=== PATIENT | male | born 1960 | race Caucasian/White ===

== ENCOUNTER → 2017-11-17 | Outpatient (CLI) | payer OTHER ==
[~2017-11-17] MED LIST: ASCO100029 PO; DILA2TAB4 PO; HYDR-3516 PO; VITA100018 PO; VITACAP7 PO
[2017-11-17 10:06] LABS: HEMATOCRIT 37.7 % (39.0-51.0); HEMOGLOBIN 12.7 GM/DL (13.0-17.0); MEAN CELL VOLUME 93.2 FL (80.0-100.0); MEAN CORPUSCULAR HEMOGLOBIN 31.5 PG (27.0-34.0); MEAN CORPUSCULAR HGB CONC 33.8 % (32.0-36.0); MEAN PLATELET VOLUME 7.4 FL (7.0-11.0); PLATELET COUNT 305 TH/MM3 (150-450); RED BLOOD COUNT 4.04 MIL/MM3 (4.50-5.90); RED CELL DISTRIBUTION WIDTH 12.6 % (11.6-17.2); WHITE BLOOD COUNT 4.4 TH/MM3 (4.0-11.0)
[2017-11-17 10:13] LABS: BACTERIA, URINE RARE /hpf; BILIRUBIN, URINE NEG (NEG); BLOOD, URINE SMALL (NEG); GLUCOSE,URINE NEG (NEG); KETONE, URINE NEG (NEG); MUCUS URINE FEW /lpf (OCC); NITRITE,URINE NEG (NEG); PH, URINE 5.5 (5.0-8.5); SQUAMOUS EPITHELIAL CELL URINE <1 /hpf (0-5); URINE COLOR YELLOW (YELLW/STRAW); URINE LEUKOCYTE ESTERASE NEG (NEG)
[2017-11-17 10:17] LABS: PROTHROMBIN TIME - PATIENT 10.2 SEC (9.8-11.6)
[2017-11-17 10:39] LABS: BICARBONATE 30.9 MEQ/L (21.0-32.0); CALCIUM 8.7 MG/DL (8.5-10.1); CREATININE 1.29 MG/DL (0.60-1.30)
--- NOTE | 2017-11-17 13:47 | EKG ---
Date Performed: 11/17/2017 Time Performed: 09:21:56 PTAGE: 57 years EKG: Sinus rhythm MARKED LEFT AXIS DEVIATION ABNORMAL ECG PREVIOUS TRACING 05/27/16 Since the previous tracing, no significant change noted DOCTOR: Ramos Walters Interpretating Date/Time 11/17/2017 13:44:35
== END ==
LOC: CPRE 09:00
PROVIDERS: ATTEND Orthopaedic Surgery
DX: Z01.810 Encounter for preprocedural cardiovascular examination (principal); Z01.812 Encounter for preprocedural laboratory examination; M16.12 Unilateral primary osteoarthritis, left hip; M79.609 Pain in unspecified limb; R94.31 Abnormal electrocardiogram [ECG] [EKG]
CPT/HCPCS: 36415; 80048; 81001; 85027; 85610; 85730; 93005

== ENCOUNTER 2017-12-05 05:20 | Inpatient (IN) | payer OTHER ==
[~2017-12-05] VITALS: Ht 177.8 cm; Wt 73.2 kg
[~2017-12-05 05:20] MED LIST changes: -DILA2TAB4 PO
[2017-12-05] MEDS ORDERED: CHLORHEXIDINE GLUCONATE 4% SOLN 120 ML BTL TOPICAL SCH (05:45)
[2017-12-05] MEDS ORDERED: POVIDONE IODINE 5% (ANTISEPSIS KIT) 4 APPLICATIONS EACH NARE PRN (05:45)
[2017-12-05] MEDS ORDERED: METOPROLOL TARTRATE 25 MG TAB PO PRN (05:45)
[2017-12-05] MEDS ORDERED: LACTATED RINGER'S 1000 ML IV PRN (05:45)
[2017-12-05] MEDS ORDERED: CHLORHEXIDINE GLUCONATE 2 % 1 PACK (2 CLOTHS) TOPICAL PRN (05:45)
[2017-12-05] MEDS ORDERED: SODIUM CHLORID 0.9% 500 ML IV PRN (05:45)
[2017-12-05] MEDS ORDERED: ceFAZolin 2 GM PREMIX 50 ML IV SCH (05:45)
[2017-12-05] MEDS ORDERED: GENTAMICIN SULFATE 80 MG/2 ML VIAL ONE (06:02)
[2017-12-05] MEDS ORDERED: ACETAMINOPHEN/HYDROcodone 325 MG/7.5 MG TAB PO PRN (06:45)
[2017-12-05] MEDS ORDERED: ZOLPIDEM TARTRATE 5 MG TAB PO PRN (06:45)
[2017-12-05] MEDS ORDERED: MORPHINE SULFATE 8 MG/ML INJ IV PUSH PRN (06:45)
[2017-12-05] MEDS ORDERED: MAGNESIUM HYDROXIDE SUSP 30 ML CUP PO PRN (06:45)
[2017-12-05] MEDS ORDERED: Post-op Orders (for Pharmacy) XX ONE (06:45)
[2017-12-05] MEDS ORDERED: BISACODYL 10 MG SUPP RECTAL PRN (06:45)
[2017-12-05] MEDS ORDERED: ONDANSETRON HCL 4 MG/2 ML VIAL IVP PRN (06:45)
[2017-12-05] MEDS ORDERED: SODIUM CHLORIDE 0.9% IV SCH ×3 (07:00→10:00)
[2017-12-05] MEDS ORDERED: TRANEXAMIC ACID IV SCH ×3 (07:00→10:00)
[2017-12-05] MEDS: KETOROLAC TROMETHAMINE 30 MG/ML (IVP) VIAL IVP SCH ×3 (07:00→18:08)
[2017-12-05] MEDS ORDERED: EXPAREL PERI-ARTICULAR INJECTION (TOTAL VOL. 60 ML) P-ARTICULR SCH ×2 (07:00)
[2017-12-05] MEDS: ASPIRIN EC 81 MG TABEC PO SCH ×2 (09:00→21:05)
[2017-12-05] MEDS: CHOLECALCIFEROL (VIT D3) 1000 UNIT TAB PO SCH (09:00)
[2017-12-05] MEDS: ASCORBIC ACID 500 MG TAB PO SCH (09:00)
[2017-12-05] MEDS: VITAMIN B COMPLEX/VIT C TAB PO SCH (09:00)
--- NOTE | 2017-12-05 09:20 | PD.OP ---
Operative Report Date of Surgery: December 05, 2017 Preoperative Diagnosis: (1) Primary osteoarthritis of left hip Postoperative Diagnosis: (1) Primary osteoarthritis of left hip Procedure: Left total hip arthroplasty using [place] prosthesis. Anesthesia: General endotracheal with supplemental local with Exparel Surgeon: Rodger Burgos MD Architectural Drafter(s): RAFAEL Davidson Operation and Findings: Indications and Findings: This 57-year-old man has had progressive worsening of pain in his left hip over the past 8 months. His ambulation tolerance is gone down to a few blocks and perhaps up to a mile but with significant pain. He has difficulty with activities of daily living. He has tried anti-inflammatory agents, analgesics, activity modification, exercises and ambulatory aids with no benefit. Physical findings showed a significant antalgic gait with tenderness on motion in the left hip. Radiographic findings shows severe osteoarthritis with loss of articular cartilage down to expose subchondral bone and D formation of the femoral head. Operative findings: There is severe osteoarthritis in the right hip with loss of articular cartilage down to expose subchondral bone in the femur and the acetabulum. Implants: The acetabular component was a 54 mm Tritanium cluster shell with a X3 polyethylene, 36 mm inner diameter, 0 liner. The femoral component was an Accolade 2, size 7 x 132. The femoral head was 36 mm outer diameter, -5 mm neck length, Biolox delta. The patient was brought to the clean air operating suite and a general endotracheal anesthetic was administered. The patient was then positioned into a lateral position with the operative hip up on a [employer] lateral positioner. The hip and lower extremity were then prepped with alcohol, Hibiclens and ChloraPrep and draped in the usual manner with the hip draped free. Patient received prophylactic antibiotics preoperatively. The patient also received tranexamic acid preoperatively. An appropriate timeout procedure was carried out. An incision was then made from the midportion of the greater trochanter proximally and posteriorly paralleling the fibers of the gluteus leonidas. The incision was deepened through subcutaneous tissues down to the fascia lluvia and gluteus fascia. The gluteus fascia was then split longitudinally in line with its fibers up to the upper portion of the fascia lluvia. With wound towels in place, the Charnley retractor was inserted. The sciatic nerve was identified and protected throughout the procedure. Dissection was then carried down to the interval between the gluteus minimus and the piriformis. A retractor was inserted. The piriformis and obturator conjoined tendon was released from the greater trochanter and reflected off the capsule. A capsulotomy was made longitudinally along the femoral neck to the base of the femoral neck and then curved distally along the posterior aspect of the greater trochanter. The hip was then internally rotated. Further release of the external rotators was carried out exposing the hip. The hip was then dislocated. The femoral neck was transected at the appropriate level using the oscillating saw placement of appropriate retractors. The femoral head was then removed. Preparation of the femur was initiated with a box osteotome followed by a curet to identify the medullary canal. Broaching was then initiated with the size 0 broach and went and 1 size increments up to size 7. The broach handle was removed. The femoral neck was then trimmed with a calcar planar. Attention was then directed to the acetabulum. Soft tissues were debrided from the acetabulum. Retractors were placed about the acetabulum. Reaming was then initiated with the 47 millimeter reamer and went in 1-2 mm increments up to the 54 millimeter diameter reamer. A trial reduction with the 54 millimeter trial prosthesis was carried out. When this was deemed to be appropriate, the trial prosthesis was removed. The acetabulum was then irrigated and cleaned. The actual prosthesis as noted above was then impacted into place and seated appropriately. Drill holes were then made and sounded. Appropriate sized screws (2) were then inserted to stabilize the acetabulum further. The liner as noted above was then inserted into the acetabular shell and impacted into place. Osteophytes were trimmed from the acetabulum. Local anesthetic was then administered throughout the area of the acetabulum and anterior aspect of the femur. The trial neck was then placed on the broach for the above-noted prosthesis. The femoral head trial was placed onto the femoral neck . A trial reduction was then carried out. Adjustment was made as needed. The stability, leg length and motion were excellent. There was no pistoning. The trial prosthesis was removed. The broach was removed. The femoral component was then impacted into the medullary canal of the femur after irrigation and suctioning. When this was appropriately seated a trial reduction was again carried out with the trial prosthesis. Again, there was no pistoning. The leg length was appropriate. The stability and motion were excellent. The trial prosthesis was then removed. After cleaning and drying the trunion of the femoral component, the above-noted femoral head was impacted onto the trunnion. The hip was then reduced. The stability and mobility were again checked along with leg lengths as noted above. The hip was then positioned appropriately and closure commenced after the remainder of the local anesthetic was injected throughout the hip. The external rotators and capsule were then repaired with #1 Vicryl interrupted transosseous sutures with a Krakw technique to reattach the external rotators and capsule to the posterior aspect of the greater trochanter. The capsule itself on the superior aspect was closed with #1 Vicryl interrupted [id number] sutures. The sciatic nerve was again inspected. The fascia lluvia and gluteus fascia were then repaired with #1 Vicryl interrupted [id number] sutures. The subcutaneous tissues were closed with 2-0 Vicryl interrupted simple sutures with buried knots. The skin was closed with a continuous subcuticular closure of 4-0 Monocryl. The wound was then approximated with Dermabond Prineo. A silver impregnated dressing was applied to the hip. A knee immobilizer was applied to the leg. The patient was then transferred from the operating room to the recovery room in satisfactory condition having tolerated the procedure well. Counts are correct. Specimens: None. Estimated blood loss: 350 mL Munir Burgos MD ([facility]) December 05, 2017 09:20
[2017-12-05] MEDS ORDERED: HYDR-3580 PO (09:23)
[2017-12-05] MEDS ORDERED: ECASA81 PO (09:23)
--- NOTE | 2017-12-05 09:24 | HHI.FF ---
Face to Face Verification Diagnosis: (1) Status post total replacement of left hip Physical Therapy Gait training Hip: Total hip, Protocol: Left, Posterior hip precautions, Progress to weight bearing Canvas Knee Splint: When in bed & 2 pillows btw thighs Left LE Weight Bearing: WB as tolerated Left LE Range of Motion: Active ROM Nursing Nursing: Dressing changes Dressing Changes: Daily dressing change, Coverderm/Primapore Additional Instructions Do not remove Dermabond Prineo. I have seen patient Niraj Calixto on 12/05/17. My clinical findings support the need for the requested home health care services because: Ltd mobility - disease progression Limited ability to care for self High risk of falls I certify that my clinical findings support that this patient is homebound because: Post-op weakness Unsteady gait/balance Unsafe to leave home unassisted Munir Burgos MD ([facility]) December 05, 2017 09:24
[2017-12-05] MEDS ORDERED: MIDAZOLAM HCL 2 MG/2 ML VIAL ONE (09:33)
[2017-12-05] MEDS ORDERED: ACETAMINOPHEN 1000 MG/100 ML 0 ML IV ONE (09:33)
[2017-12-05] MEDS ORDERED: *MEPERIDINE 25 MG INJ VIAL PERIprocedural Use ONLY ONE (09:42)
[2017-12-05] MEDS ORDERED: DO NOT ADM ANY ANTICOAGULANT DRUGS PRN (09:45)
[2017-12-05] MEDS ORDERED: *morphine SULFATE 8 MG/ML PERIprocedure ONLY ONE ×2 (09:51→10:25)
[2017-12-05] MEDS: LACTATED RINGER'S 1000 ML INJ 1,000 ML IV SCH ×2 (10:00→21:06)
--- NOTE | 2017-12-05 10:35 | RADRPT ---
EXAM DATE/TIME: 12/05/2017 09:43 [place] COMPARISON: No previous studies available for comparison. INDICATIONS : Post op left total hip MEDICAL HISTORY : None. SURGICAL HISTORY : Total left hip ENCOUNTER: Initial ACUITY: 1 day PAIN SCORE: 10/10 LOCATION: Left hip FINDINGS: Left total hip arthroplasty is noted. No fracture or dislocation. Bone density is normal. Subcutaneou s air and probable joint fluid density suspected. CONCLUSION: Postoperative changes to the left hip are noted. Jefferson Skinner MD on December 05, 2017 at 10:31 Board Certified Radiologist. This report was verified electronically.
[2017-12-05] MEDS ORDERED: ROCURONIUM INJ 50 MG/5 ML SYRINGE IV PUSH ONE (12:00)
[2017-12-05] MEDS ORDERED: GLYCOPYRROLATE 1 MG/5 ML SYRINGE IV PUSH ONE (12:00)
[2017-12-05] MEDS ORDERED: PROPOFOL 200 MG/20 ML AMP IV ONE (12:00)
[2017-12-05] MEDS ORDERED: PHENYLEPH/NS 1000 MCG/10 ML SYR IV ONE (12:00)
[2017-12-05] MEDS ORDERED: NEOSTIGMINE 5 MG/5 ML SYRINGE IV PUSH ONE (12:00)
[2017-12-05] MEDS ORDERED: ONDANSETRON HCL 4 MG/2 ML VIAL IV ONE (12:00)
[2017-12-05] MEDS ORDERED: KETOROLAC TROMETHAMINE 30 MG/ML (IVP) VIAL IV PUSH ONE (12:00)
[2017-12-05] MEDS ORDERED: DEXAMETHASONE SOD PHOS 4 MG/ML VIAL IV ONE (12:00)
[2017-12-05] MEDS ORDERED: LACTATED RINGER'S 1000 ML INJ 1,000 ML IV ONE (12:00)
[2017-12-05] MEDS ORDERED: LIDOCAINE HCL 1% PF 5 ML SYRINGE OTHER ONE (12:00)
[2017-12-05] MEDS ORDERED: ePHEDrine/NS 25 MG/5 ML SYRINGE IV ONE (12:00)
[2017-12-05] MEDS ORDERED: ESMOLOL HCL 100 MG/10 ML VIAL IV ONE (12:00)
--- NOTE | 2017-12-05 14:00 | PD.CONS ---
HPI Service [facility] Hospitalists Consult Requested By Dr. Burgos Reason for Consult Medical management Primary Care Physician Non-Staff Diagnoses: (1) Primary osteoarthritis of left hip (2) Bilateral kidney stones History of Present Illness The patient is a 57-year-old male who is seen following left total hip arthroplasty. Hospitalist consultation was requested for medical management. Patient reports that his pain is well controlled. Denies chest pain or dyspnea. No nausea, vomiting, diarrhea, constipation. He reports chronic frequent kidney stones. No active symptoms. He sees Dr. Acevedo for urology. Review of Systems Constitutional: DENIES: Fever, Chills, Night Sweats Eyes: DENIES: Blurred vision, Vision loss Ears, nose, mouth, throat: DENIES: Hearing loss Respiratory: DENIES: Cough, Wheezing, Sputum production, Shortness of breath Cardiovascular: DENIES: Chest pain, Palpitations, Dyspnea on Exertion, Lower Extremity Edema Gastrointestinal: DENIES: Abdominal pain, Constipation, Diarrhea, Nausea, Vomiting Genitourinary: DENIES: Urinary frequency, Urinary incontinence, Urgency, Hematuria, Dysuria, Nocturia Musculoskeletal: COMPLAINS OF: Joint pain, DENIES: Muscle aches Integumentary: DENIES: Pruritus, Rash Hematologic/lymphatic: DENIES: Bruising Neurologic: DENIES: Headache Past Family Social History Allergies: Coded Allergies: No Known Allergies (Verified Allergy, Unknown, 12/05/17) Past Medical History Nephrolithiasis Reported Medications [place] as needed Vitamin D3 Vitamin C B complex vitamins Family History Cancer Osteoarthritis Social History Denies alcohol or tobacco use. Rare marijuana use (once/year). Physical Exam Vital Signs Vital Signs Date Time Temp Pulse Resp B/P (MAP) Pulse Ox O2 Delivery O2 Flow Rate FiO2 12/05/17 13:20 98 16 96 Room Air 12/05/17 13:00 98.4 100 16 119/64 (82) 96 Room Air 12/05/17 12:00 95 16 120/61 (80) 95 Room Air 12/05/17 11:00 15 12/05/17 11:00 88 16 126/59 (81) 94 Room Air 12/05/17 10:45 82 16 130/61 (84) 94 Room Air 12/05/17 10:42 15 12/05/17 10:42 15 12/05/17 10:30 97.7 87 16 133/68 (89) 100 Nasal Cannula 2 12/05/17 10:15 86 15 133/62 (85) 99 Nasal Cannula 2 12/05/17 10:00 84 15 137/66 (89) 99 Nasal Cannula 2 12/05/17 09:56 15 12/05/17 09:45 97.2 89 15 140/68 (92) 98 Nasal Cannula 2 12/05/17 09:30 92 14 146/69 (94) 98 Nasal Cannula 2 12/05/17 09:23 96.4 12/05/17 09:23 96.4 99 14 141/76 (97) 100 Nasal Cannula 3 12/05/17 05:56 97.7 65 18 127/78 (94) 98 Physical Exam GENERAL: Well-nourished, well-developed male in no acute distress. HEENT: Normocephalic, atraumatic. Pupils equal, round and reactive. Extraocular movements intact. No scleral icterus. No injection or drainage. Oropharynx is clear. Mucous membranes are moist. CARDIOVASCULAR: Regular rate and rhythm without murmurs, gallops, or rubs. RESPIRATORY: Clear to auscultation. No wheezes, rales, or rhonchi. Breathing is non-labored. GASTROINTESTINAL: Abdomen soft, non-tender, nondistended. EXTREMITIES: No lower extremity edema. SCDs. PSYCH: Alert and oriented x 3. Imaging Last Impressions Hip X-Ray 12/05/17 0640 Signed Impressions: Service Date/Time: Tuesday, December 05, 2017 09:43 - CONCLUSION: Postoperative changes to the left hip are noted. Jefferson Skinner MD Assessment and Plan Assessment and Plan 1. Osteoarthritis: Status post left total hip arthroplasty. Management per orthopedic surgery. Continue pain control, bowel regimen, physical therapy. 2. Nephrolithiasis: Patient has chronic kidney stones. Currently asymptomatic. Follow-up as outpatient with urology. 3. The patient states that following right total hip arthroplasty a couple years ago, he developed hypotension and was kept in the hospital an extra day. We will monitor his blood pressure. 4. DVT prophylaxis: Aspirin. Jewel Chiang MD December 05, 2017 14:00
[2017-12-05 16:00] VITALS: BP 112/61; PULSE 90; RESP 18; TEMP 97.9; O2SAT 95
[2017-12-05 20:14] VITALS: BP 102/65; PULSE 71; RESP 18; TEMP 97.8; O2SAT 95
[2017-12-05] MEDS: ACETAMINOPHEN/HYDROcodone 325 MG/7.5 MG TAB PO PRN (21:04)
[2017-12-05 23:19] VITALS: BP 97/52; PULSE 79; RESP 18; TEMP 98.1; O2SAT 98
[2017-12-06] MEDS: KETOROLAC TROMETHAMINE 30 MG/ML (IVP) VIAL IVP SCH ×5 (01:29→23:54)
[2017-12-06 03:11] VITALS: BP 105/53; PULSE 88; RESP 18; TEMP 98.1; O2SAT 96
[2017-12-06 06:20] LABS: HEMATOCRIT 27.7 % (39.0-51.0); HEMOGLOBIN 9.6 GM/DL (13.0-17.0)
--- NOTE | 2017-12-06 06:55 | PD.ORT.PN ---
Subjective Post Op Day #: 1 Subjective Remarks He is doing well. He has minimal complaints related to his hip. He did have some problems with hypotension postoperatively initially but is doing well now. He has virtually no pain. Distance Walked 60 feet with PT. Objective Vitals Vital Signs Date Time Temp Pulse Resp B/P (MAP) Pulse Ox O2 Delivery O2 Flow Rate FiO2 12/06/17 03:11 98.1 88 18 105/53 (70) 96 12/06/17 02:28 17 12/05/17 23:19 98.1 79 18 97/52 (67) 98 12/05/17 22:25 18 12/05/17 21:44 Room Air 12/05/17 20:14 97.8 71 18 102/65 (77) 95 12/05/17 16:00 97.9 90 18 112/61 (78) 95 12/05/17 13:20 98 16 96 Room Air 12/05/17 13:00 98.4 100 16 119/64 (82) 96 Room Air 12/05/17 12:00 95 16 120/61 (80) 95 Room Air 12/05/17 11:00 15 12/05/17 11:00 88 16 126/59 (81) 94 Room Air 12/05/17 10:45 82 16 130/61 (84) 94 Room Air 12/05/17 10:42 15 12/05/17 10:42 15 12/05/17 10:30 97.7 87 16 133/68 (89) 100 Nasal Cannula 2 12/05/17 10:15 86 15 133/62 (85) 99 Nasal Cannula 2 12/05/17 10:00 84 15 137/66 (89) 99 Nasal Cannula 2 12/05/17 09:56 15 12/05/17 09:45 97.2 89 15 140/68 (92) 98 Nasal Cannula 2 12/05/17 09:30 92 14 146/69 (94) 98 Nasal Cannula 2 12/05/17 09:23 96.4 12/05/17 09:23 96.4 99 14 141/76 (97) 100 Nasal Cannula 3 I/O 12/05/17 12/05/17 12/05/17 12/06/17 12/06/17 12/06/17 07:00 15:00 23:00 07:00 15:00 23:00 Intake Total 1740 ml 1480 ml 460 ml Output Total 350 ml 200 ml 1225 ml Balance 1390 ml 1280 ml -765 ml Intake Oral 240 ml 480 ml 360 ml IV Total 1000 ml 100 ml Other 1500 ml Output Urine Total 200 ml 1225 ml Estimated Blood Loss 350 ml # Voids 0 # Bowel Movements 0 Result Diagram: 12/06/17 0543 Imaging Last 72 hours Impressions Hip X-Ray 12/05/17 0640 Signed Impressions: Service Date/Time: Tuesday, December 05, 2017 09:43 - CONCLUSION: Postoperative changes to the left hip are noted. Jefferson Skinner MD Objective Remarks He is resting comfortably, supine in bed. The neurovascular status is intact. The dressing is dry and intact. Assessment & Plan Ortho Post Op Day #: 1 Problem List: (1) Primary osteoarthritis of left hip ICD Codes: M16.12 - Unilateral primary osteoarthritis, left hip Status: Resolved (2) Status post total hip replacement, right ICD Codes: Z96.641 - Presence of right artificial hip joint Status: Acute Plan: Continue postop care and PT. Assessment and Plan Condition: Good. Orthopedically stable. DVT prophylaxis: TEDs, aspirin, sequentials. Discharge plans: Home with home health care. An appointment was scheduled through the office. Prescriptions: [place] 7.5/325 Munir Burgos MD ([place]) December 06, 2017 06:54
--- NOTE | 2017-12-06 07:11 | HHI.DS ---
Discharge Summary Admission Date December 05, 2017 at 05:20 Discharge Date: December 07, 2017 Admitting Diagnosis Primary osteoarthritis, left hip. Diagnosis: (1) Primary osteoarthritis of left hip Diagnosis: Principal ICD Codes: M16.12 - Unilateral primary osteoarthritis, left hip Status: Resolved (2) Status post total hip replacement, right Diagnosis: Principal ICD Codes: Z96.641 - Presence of right artificial hip joint Status: Acute Procedures Left total hip arthroplasty using [place] prosthesis on 12/05/2017. Brief History This is a 57 year old male patient has had recent onset of left hip pain over the past 8 months progressively worsening to the point that he has had very limited ambulation tolerance. This has not responded to conservative measures including anti-inflammatory agents, activity modification, analgesics and external support. Physical findings showed limitation of range of motion of the hip with tenderness on range of motion. He had an antalgic gait. Radiographic findings showed loss of articular cartilage to expose subchondral bone on both x-ray and MRI. CBC/BMP: 12/06/17 0543 Significant Findings Laboratory Tests Test 12/06/17 05:43 12/07/17 04:01 Hemoglobin 9.6 GM/DL (13.0-17.0) 9.5 GM/DL (13.0-17.0) Hematocrit 27.7 % (39.0-51.0) 27.9 % (39.0-51.0) Laboratory Tests Test 12/06/17 05:43 Hemoglobin 9.6 GM/DL (13.0-17.0) Hematocrit 27.7 % (39.0-51.0) Imaging Last 72 hours Impressions Hip X-Ray 12/05/17 0640 Signed Impressions: Service Date/Time: Tuesday, December 05, 2017 09:43 - CONCLUSION: Postoperative changes to the left hip are noted. Jefferson Skinner MD PE at Discharge He is resting comfortably, supine in bed. The neurovascular status is intact. The dressing is dry and intact. Hospital Course The patient was admitted as noted above. The above noted operative procedure was carried out that day. Preoperatively prophylactic antibiotics were administered Ancef according to protocol. These were continued postoperatively. The patient also received tranexamic acid to help with hemostasis according to protocol. In the postanesthesia care unit mechanical methods of DVT prophylaxis in the form of HUMBLE stockings and sequentials were initiated. Physical therapy was initiated on the day of surgery. On postoperative day #1 physical therapy continued. DVT prophylaxis with aspirin 81 mg was initiated at this time. He did have some hypotension when walking. This did improve. The patient continued physical therapy throughout the hospitalization. The distance walked and range of motion improved throughout the hospitalization. The patient was discharged on postoperative day 2 with the disposition being to home with home health care. An appointment for follow-up was made prior to admission. Pt Condition on Discharge: Good Discharge Disposition: Disch w/ Home Health Serv Discharge Instructions Diet Instructions: As Tolerated, No Restrictions Activities You Can Perform: Full Weight Bearing, Shower Only-No Bath Activities to Avoid: Lifting/Bending, Strenuous Activity, Bathing, Driving Follow up Referrals: Orthopedics with Munir Burgos MD ([place]) New Medications: Aspirin DR (Aspirin DR) 81 Mg Tabdr 81 MG PO BID for Prevent Blood Clot for 30 Days, #60 TAB Hydrocodone/Acetaminophen (Hydrocodone-Acetamin 7.5-325) 7.5 Mg-325 Mg Tablet 1 TAB PO Q4H PRN for PAIN SCALE 1 TO 10, #30 TAB Continued Medications: Ascorbic Acid (Vitamin C) 1,000 Mg Tablet.er 1 CAP PO DAILY B-Complex Vitamins (B Complex) 1 Cap 1 CAP PO DAILY for Nutritional Supplement, #30 CAP 0 Refills Cholecalciferol (Vitamin D3) 1,000 Unit Tab 1000 UNITS PO DAILY for Nutritional Supplement, #1 BOTTLE 0 Refills Hydrocodone-Acetaminophen (Hydrocodone-Acetaminophen) 5-325 mg Tab 1 TAB PO Q6H PRN for PAIN, TAB 0 Refills Munir Burgos MD ([place]) December 06, 2017 07:11
[2017-12-06] MEDS: LACTATED RINGER'S 1000 ML INJ 1,000 ML IV SCH ×2 (07:40→20:10)
[2017-12-06 08:00] VITALS: BP 98/53; PULSE 75; RESP 17; TEMP 98; O2SAT 99
[2017-12-06] MEDS: VITAMIN B COMPLEX/VIT C TAB PO SCH (08:10)
[2017-12-06] MEDS: CHOLECALCIFEROL (VIT D3) 1000 UNIT TAB PO SCH (08:10)
[2017-12-06] MEDS: ASCORBIC ACID 500 MG TAB PO SCH (08:10)
[2017-12-06] MEDS: ASPIRIN EC 81 MG TABEC PO SCH ×2 (08:13→20:58)
[2017-12-06] MEDS: ACETAMINOPHEN/HYDROcodone 325 MG/7.5 MG TAB PO PRN ×4 (08:19→23:53)
--- NOTE | 2017-12-06 09:11 | HHI.PR ---
Subjective Remarks Follow up hypotension. Patient states that he has lightheadedness and dizziness when ambulating. BP has been running low. No chest pain or dyspnea. Pain is well controlled. Objective Vitals Vital Signs Date Time Temp Pulse Resp B/P (MAP) Pulse Ox O2 Delivery O2 Flow Rate FiO2 12/06/17 08:00 98.0 75 17 98/53 (68) 99 12/06/17 03:11 98.1 88 18 105/53 (70) 96 12/06/17 02:28 17 12/05/17 23:19 98.1 79 18 97/52 (67) 98 12/05/17 22:25 18 12/05/17 21:44 Room Air 12/05/17 20:14 97.8 71 18 102/65 (77) 95 12/05/17 16:00 97.9 90 18 112/61 (78) 95 12/05/17 13:20 98 16 96 Room Air 12/05/17 13:00 98.4 100 16 119/64 (82) 96 Room Air 12/05/17 12:00 95 16 120/61 (80) 95 Room Air 12/05/17 11:00 15 12/05/17 11:00 88 16 126/59 (81) 94 Room Air 12/05/17 10:45 82 16 130/61 (84) 94 Room Air 12/05/17 10:42 15 12/05/17 10:42 15 12/05/17 10:30 97.7 87 16 133/68 (89) 100 Nasal Cannula 2 12/05/17 10:15 86 15 133/62 (85) 99 Nasal Cannula 2 12/05/17 10:00 84 15 137/66 (89) 99 Nasal Cannula 2 12/05/17 09:56 15 12/05/17 09:45 97.2 89 15 140/68 (92) 98 Nasal Cannula 2 12/05/17 09:30 92 14 146/69 (94) 98 Nasal Cannula 2 12/05/17 09:23 96.4 12/05/17 09:23 96.4 99 14 141/76 (97) 100 Nasal Cannula 3 I/O 12/05/17 12/05/17 12/05/17 12/06/17 12/06/17 12/06/17 06:59 14:59 22:59 06:59 14:59 22:59 Intake Total 1740 ml 1480 ml 460 ml Output Total 350 ml 200 ml 1225 ml Balance 1390 ml 1280 ml -765 ml Intake Oral 240 ml 480 ml 360 ml IV Total 1000 ml 100 ml Other 1500 ml Output Urine Total 200 ml 1225 ml Estimated Blood Loss 350 ml # Voids 0 # Bowel Movements 0 Result Diagram: 12/06/17 0543 Imaging Last Impressions Hip X-Ray 12/05/17 0640 Signed Impressions: Service Date/Time: Tuesday, December 05, 2017 09:43 - CONCLUSION: Postoperative changes to the left hip are noted. Jefferson Skinner MD Objective Remarks General: No acute distress. Heart: Regular rate and rhythm. No murmur. Lungs: Clear to auscultation bilaterally. No wheezes, rales, or rhonchi. Breathing is nonlabored. Abdomen: Soft, nontender, nondistended. Extremities: No lower extremity edema. Psych: Alert and oriented. Neuro: Normal speech. No focal deficits noted. Procedures 12/05/17 left total hip arthroplasty Urinary Catheter: No Vascular Central Line Catheter: No A/P Problem List: (1) Primary osteoarthritis of left hip ICD Code: M16.12 - Unilateral primary osteoarthritis, left hip Status: Resolved (2) Bilateral kidney stones ICD Code: N20.0 - Bilateral kidney stones Status: Chronic Assessment and Plan 1. Osteoarthritis: Status post left total hip arthroplasty. Management per orthopedic surgery. Continue pain control, bowel regimen, physical therapy. 2. Nephrolithiasis: Patient has chronic kidney stones. Currently asymptomatic. Follow-up as outpatient with urology. 3. Hypotension, symptomatic: Patient is having lightheadedness and dizziness associated with low blood pressure. This occurred 2 years ago following prior surgery. I would recommend IV fluids and monitoring his symptoms. 4. DVT prophylaxis: Aspirin. Discharge Planning Plan for discharge home when symptoms have improved, possibly later today or tomorrow if still having lightheadedness and low blood pressure. Jewel Chiang MD December 06, 2017 09:11
[2017-12-06 12:00] VITALS: BP 116/59; PULSE 82; RESP 17; TEMP 97.1; O2SAT 100
[2017-12-06 20:00] VITALS: BP 111/55; PULSE 89; RESP 17; TEMP 98.7; O2SAT 95
[2017-12-06] MEDS: DOCUSATE SODIUM 100 MG CAP PO SCH (20:58)
[2017-12-07 00:01] VITALS: BP 116/56; PULSE 88; RESP 18; TEMP 97.7; O2SAT 95
[2017-12-07 04:00] VITALS: BP 115/60; PULSE 79; RESP 17; TEMP 98.4; O2SAT 97
[2017-12-07 04:41] LABS: HEMATOCRIT 27.9 % (39.0-51.0); HEMOGLOBIN 9.5 GM/DL (13.0-17.0)
[2017-12-07] MEDS: ACETAMINOPHEN/HYDROcodone 325 MG/7.5 MG TAB PO PRN ×2 (06:07→12:59)
--- NOTE | 2017-12-07 07:15 | PD.ORT.PN ---
Subjective Post Op Day #: 2 Subjective Remarks He is doing well. He has minimal complaints related to his hip. He has no pain. He did have some problems with hypotension yesterday but is doing well now. Distance Walked 114 feet with PT. Objective Vitals Vital Signs Date Time Temp Pulse Resp B/P (MAP) Pulse Ox O2 Delivery O2 Flow Rate FiO2 12/07/17 04:00 98.4 79 17 115/60 (78) 97 12/07/17 00:01 97.7 88 18 116/56 (76) 95 12/06/17 20:00 98.7 89 17 111/55 (73) 95 12/06/17 12:00 97.1 82 17 116/59 (78) 100 12/06/17 08:00 3.00 99 12/06/17 08:00 98.0 75 17 98/53 (68) 99 I/O 12/06/17 12/06/17 12/06/17 12/07/17 12/07/17 12/07/17 07:00 15:00 23:00 07:00 15:00 23:00 Intake Total 460 ml 480 ml 460 ml Output Total 1225 ml 850 ml Balance -765 ml 480 ml -390 ml Intake Oral 360 ml 480 ml 460 ml IV Total 100 ml Output Urine Total 1225 ml 850 ml # Voids 4 1 # Bowel Movements 0 0 Result Diagram: 12/07/17 0401 Imaging Last 72 hours Impressions Hip X-Ray 12/05/17 0640 Signed Impressions: Service Date/Time: Tuesday, December 05, 2017 09:43 - CONCLUSION: Postoperative changes to the left hip are noted. Jefferson Skinner MD Procedures Left total hip arthroplasty using David prosthesis on 12/05/2017. Objective Remarks He is resting comfortably, supine in bed. The neurovascular status is intact. The dressing is dry and intact. Assessment & Plan Ortho Post Op Day #: 2 Problem List: (1) Primary osteoarthritis of left hip ICD Codes: M16.12 - Unilateral primary osteoarthritis, left hip Status: Resolved (2) Status post total hip replacement, right ICD Codes: Z96.641 - Presence of right artificial hip joint Status: Acute Plan: Continue postop care and PT. Assessment and Plan Condition: Good. Orthopedically stable. DVT prophylaxis: TEDs, aspirin, sequentials. Discharge plans: Home with home health care. An appointment was scheduled through the office. Prescriptions: [place] 7.5/325 Munir Burgos MD (Charles) December 07, 2017 07:15
[2017-12-07 07:38] VITALS: BP 99/56; PULSE 85; RESP 19; TEMP 98.2; O2SAT 96
[2017-12-07] MEDS: LACTATED RINGER'S 1000 ML INJ 1,000 ML IV SCH (08:25)
--- NOTE | 2017-12-07 09:42 | HHI.PR ---
Subjective Remarks Patient had difficulty with feeling dizzy/lightheaded yesterday DC held Patient reports feeling well today, no longer dizzy or lightheaded. Objective Vitals Vital Signs Date Time Temp Pulse Resp B/P (MAP) Pulse Ox O2 Delivery O2 Flow Rate FiO2 12/07/17 07:38 98.2 85 19 99/56 (70) 96 12/07/17 04:00 98.4 79 17 115/60 (78) 97 12/07/17 00:01 97.7 88 18 116/56 (76) 95 12/06/17 20:00 98.7 89 17 111/55 (73) 95 12/06/17 12:00 97.1 82 17 116/59 (78) 100 Result Diagram: 12/07/17 0401 Other Results Laboratory Tests Test 12/06/17 05:43 12/07/17 04:01 Hemoglobin 9.6 GM/DL 9.5 GM/DL Hematocrit 27.7 % 27.9 % Imaging Last Impressions Hip X-Ray 12/05/17 0640 Signed Impressions: Service Date/Time: Tuesday, December 05, 2017 09:43 - CONCLUSION: Postoperative changes to the left hip are noted. Jefferson Skinner MD Objective Remarks General: No acute distress. Heart: Regular rate and rhythm. No murmur. Lungs: Clear to auscultation bilaterally. No wheezes, rales, or rhonchi. Breathing is nonlabored. Abdomen: Soft, nontender, nondistended. Extremities: No lower extremity edema. Psych: Alert and oriented. Neuro: Normal speech. No focal deficits noted. Procedures 12/05/17 left total hip arthroplasty A/P Problem List: (1) Primary osteoarthritis of left hip ICD Codes: M16.12 - Unilateral primary osteoarthritis, left hip Status: Resolved (2) Bilateral kidney stones ICD Codes: N20.0 - Bilateral kidney stones Status: Chronic Assessment and Plan 1. Osteoarthritis: Status post left total hip arthroplasty 12/05/[address] Burgos. Management per orthopedic surgery. Continue pain control, bowel regimen, physical therapy. 2. Nephrolithiasis: Patient has chronic kidney stones. Currently asymptomatic. Follow-up as outpatient with urology. 3. Hypotension, symptomatic: Patient was having lightheadedness and dizziness yesterday associated with low blood pressure. This occurred 2 years ago following prior surgery. Today (12/07) patient asymptomatic and doing well. 4. DVT prophylaxis: Aspirin. Discharge Planning Patient cleared for DC from medical Supervising Physician Anai Del Castillo December 07, 2017 09:42
[2017-12-07] MEDS: CHOLECALCIFEROL (VIT D3) 1000 UNIT TAB PO SCH (10:15)
[2017-12-07] MEDS: ASPIRIN EC 81 MG TABEC PO SCH (10:16)
[2017-12-07] MEDS: VITAMIN B COMPLEX/VIT C TAB PO SCH (10:16)
[2017-12-07] MEDS: DOCUSATE SODIUM 100 MG CAP PO SCH (10:16)
[2017-12-07] MEDS: ASCORBIC ACID 500 MG TAB PO SCH (10:16)
[2017-12-07 11:43] VITALS: BP 110/56; PULSE 95; RESP 19; TEMP 98.5; O2SAT 98
== END 2017-12-07 14:14 | disposition home health service (06) | DRG 470 ==
LOC: HSDI 05:20 → N06A 13:32
PROVIDERS: ADMIT Orthopaedic Surgery; ATTEND Orthopaedic Surgery
PROC: 0SRB02A Replacement of Left Hip Joint with Metal on Polyethylene Synthetic Substitute, Uncemented, Open Approach (ICD-10-PCS; principal; 2017-12-05 06:38)
DX: M16.12 Unilateral primary osteoarthritis, left hip (principal); G62.9 Polyneuropathy, unspecified; Z96.641 Presence of right artificial hip joint; N20.0 Calculus of kidney; I95.81 Postprocedural hypotension
CPT/HCPCS: 73502; 85014; 85018; 86850; 86900; 86901; 94150; C1776; C9290; J0131; J0690; J1100; J1580; J1885; J2175; J2250; J2270; J2370; J2405; J2710; J3010; J7120; L1830